=== PATIENT | female | born 1960 | race Caucasian/White ===

== ENCOUNTER 2017-12-05 10:16 | Emergency (ER) | payer BC, OTHER ==
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
[2017-12-05 12:14] VITALS: BP 163/70
== END 2017-12-05 12:05 | disposition home or self-care (01) ==
LOC: UCEAST 10:16
DX: T22.112A Burn of first degree of left forearm, initial encounter (principal); T31.0 Burns involving less than 10% of body surface; X10.0XXA Contact with hot drinks, initial encounter; Y93.89 Activity, other specified; Y92.9 Unspecified place or not applicable; Z87.891 Personal history of nicotine dependence
CPT/HCPCS: 16020; 99211; 99212; G0463